=== PATIENT | male | born 1965 | race Two or more races ===

== ENCOUNTER 2021-07-28 11:54 | Outpatient (CLI) | payer OTHER | END 2021-07-28 12:06 | disposition home or self-care (01) | LOC: RAD 11:54 | DX: M54.2 Cervicalgia (principal); M25.511 Pain in right shoulder; N39.0 Urinary tract infection, site not specified; N40.0 Benign prostatic hyperplasia without lower urinary tract symptoms; N20.0 Calculus of kidney; N02.0 Recurrent and persistent hematuria with minor glomerular abnormality ==